=== PATIENT | male | born 1935 | race Caucasian/White ===

== ENCOUNTER 2016-11-14 13:00 | Inpatient (IN) | payer MEDICARE ==
[~2016-11-14] VITALS: Ht 172.7 cm; Wt 72.2 kg
--- NOTE | ~2016-11-14 | DS ---
PATIENT'S NAME: KAVITHA LEUNG [facility] AGE: 81 Y [address] ROOM: [place] [address] LOCATION: GPCU ADMIT DATE: 11/21/2016 Discharge Summary DISCHARGE DATE: 11/23/2016 FAMILY PHYSICIAN: Usha Villafana MD ATTENDING PHYSICIAN: Debora SCOTT FINAL DIAGNOSES: Peripheral vascular disease with right common femoral artery occlusion. SECONDARY DIAGNOSES: 1. Chronic obstructive pulmonary disease. 2. Hypertension, well controlled. 3. Chronic kidney disease stage 3. 4. Acute blood loss anemia postoperatively. PROCEDURES: Right common femoral artery endarterectomy with left lower extremity angiogram by Dr. Mohr on 11/21/2016. CONSULTATIONS: Hospitalist for medication management. HOSPITAL COURSE: This is an 81-year-old male, admitted to [facility] on 11/21/2016 after right common femoral artery endarterectomy and left lower extremity angiogram with Dr. Mohr. Operative findings, Recanalization of the right common femoral artery after patch angioplasty and left SFA total occlusion requiring bypass in the future with femoral below the knee pop. See history and physical for full patient details. The patient tolerated the procedure well and after recovery was admitted to the progressive care unit for monitoring of labs, vitals, surgical site, distal pulses, telemetry, pain management, medication administration, and nursing assistance. His IV Ancef was continued at every 8 hours postoperatively while inpatient. Hospitalists were consulted for medication management. Postop day 0, dopamine drip was initiated to keep MAP greater than 65. Dopamine was weaned off the patient by postop day 1. On postop day #1, the patient was found in stable condition with strong PT signals. His Kelly was removed. Saline fluids were removed and vein mapping of left leg completed for future bypass planning. The patient got up to the chair and bathroom without complications and his pain was well controlled. On postop day 2, the patient tolerated ambulating in the [place] with Physical Therapy and ambulated 200 feet without assistance. DP and PT Dopplered with good waveforms. His dressings removed, which revealed a clean, dry, intact incision to his right groin. The patient was found in stable condition from both a vascular standpoint and a hospitalist standpoint and was discharged home without complication. PATIENT'S NAME: XOCHITL KAVITHA [facility] AGE: 81 Y [address] ROOM: [address] [place], [place] [address] LOCATION: GPCU ADMIT DATE: 11/21/2016 Discharge Summary DISCHARGE DATE: 11/23/2016 FAMILY PHYSICIAN: Usha Villafana MD ATTENDING PHYSICIAN: Debora SCOTT DIAGNOSTICS AND LABORATORY DATA: White blood cell count trending 6.1, 5.1, 10.6, 9.8. Hemoglobin trending 13.2, 10.2, 8.8, 2.1. DISCHARGE ORDERS: The patient is to be discharged home on a regular diet. He is to avoid heavy lifting for 2 weeks. He is to apply daily dry gauze to his right groin. The patient is to follow up in 2 weeks at [facility] with Karen Storey APRN on 12/05/2016 for staple removal and incision evaluation. He is to follow up with Dr. Mejia regarding chronic kidney disease on 11/30/2016. The patient is to report any signs or symptoms of infection including redness, swelling, fevers, chills, or drainage. The patient is to report any acute onset of pain, numbness, or tingling to right lower extremity. MEDICATIONS: 1. Metoprolol, extended release 50 mg p.o. daily. 2. Simvastatin 20 mg p.o. at nighttime daily. 3. Niacin extended release 500 mg p.o. daily at bedtime. 4. Multivitamin 1 tablet p.o. daily. 5. Aspirin 81 mg p.o. daily. 6. Vitamin B12 2500 mcg p.o. daily. 7. Calcium carbonate 1 tablet p.o. every 4 hours as needed for heartburn. 8. [place] 5/325 one to two tablets p.o. every 4 hours as needed for pain. DISPOSITION: The patient is discharged home in stable condition. He is to follow discharge orders as prescribed. Education about surgical site care, medications, prescriptions, diet and activity, and followup appointment is given to the patient. The patient verbalized understanding of the plan and had no further questions or concerns. He is to follow discharge orders as prescribed. KAREN STOREY APRN FOR MD [employer]/neema /[id number] d: 11/25/16 0328 t: 11/29/16 1511, DISCHARGE SUMMARY
--- NOTE | ~2016-11-14 | ENPV ---
Vascular Lower Extremity Vein Mapping Procedure Demographics Patient Name KAVITHA LEUNG Date of Study 11/22/2016 Patient Number [id number] Gender Male Date of 1935 Age 81 Visit Number [id number] Height Accession Number [id number] Weight Room Number G6308 BSA BMI Referring Broderick Worthington MD Interpreting Onur Barry MD Physician Onur Barry MD Physician Jayleen Cazares Physician Ordering Physician Onur Barry MD Automatic Head Sawyer Biometry Teacher Fozia Haas, RT,RVT,RDCS Kit Younger Conclusions Summary The left greater saphenous vein was imaged for a pre-op CABG. No evidence of superficial thrombophlebitis in the left lower extremity . Procedure Type of Study: Veins:Lower Extremity Vein Mapping, Vein Mapping. Indications for Study:Pre-op CABG. Appropriate Use Criteria:8 Allergies - No known allergies. Patient Status:Routine. Study Location:Inpatient Portable. Technical Quality:Adequate visualization. Velocities are measured in cm/s ; Diameters are measured in cm + ++--------++--------+ !Superficial - Great Saphenous Vein !!Right !!Left ! + ++--------++--------+ !Location !!Diameter!!Diameter! + ++--------++--------+ !Sapheno Femoral Junction !! !!0.46 ! + ++--------++--------+ !GSV High Thigh !! !!0.31 ! + ++--------++--------+ !GSV Mid Thigh !! !!0.18 ! + ++--------++--------+ !GSV Low Thigh !! !!0.16 ! + ++--------++--------+ !GSV Knee !! !!0.17 ! + ++--------++--------+ !GSV High Calf !! !!0.18 ! + ++--------++--------+ !GSV Mid Calf !! !!0.16 ! + ++--------++--------+ !GSV Low Calf !! !!0.16 ! + ++--------++--------+ Signature dtt: SYED VELEZ dtwilliam: 11/22/16 0946 Physician Self Edit
--- NOTE | ~2016-11-14 | OR ---
PATIENT'S NAME: KAVITHA LEUNG [facility] AGE: 81 Y [address] ROOM: [address] [address] LOCATION: GPCU ADMIT DATE: 11/21/2016 OR/Procedure Report DISCHARGE DATE: FAMILY PHYSICIAN: Usha Villafana MD ATTENDING PHYSICIAN: Debora SCOTT SURGEON: Jhonny Mohr MD SCHOOL RESOURCE OFFICER: DATE OF PROCEDURE: 11/21/2016 PREOPERATIVE DIAGNOSIS: Right common femoral artery occlusion. POSTOPERATIVE DIAGNOSIS: Right common femoral artery occlusion. PROCEDURE: Right common femoral endarterectomy with left lower extremity diagnostic angiogram. FACILITIES FLIGHT CHECK PILOT: TATI [place]. ANESTHESIA: General. ESTIMATED BLOOD LOSS: 350 mL. OPERATIVE FINDINGS: Recanalization of the right common femoral after patch angioplasty and left SFA total occlusion requiring bypass in the future without fem below-knee pop. DESCRIPTION OF PROCEDURE: The patient was brought to operating room, placed supine on operating table, placed under general anesthesia, prepped and draped in a sterile manner, had placement of arterial line as well as a Kelly catheter. Preoperative time-out was performed. The patient received 2 g of Ancef. We made a standard incision in a vertical manner in the right groin, dissected down the fascia, incised the fascia in a longitudinal manner, dissected out the superficial femoral, the common femoral, and the profunda artery. We gave 5000 units of heparin [place] [id number] for [place] case, which was reversed with protamine. We then clamped on all 3 of the major vessels. Made arteriotomy on the SFA extending onto the common femoral. There was dense, soft, noncalcified plaque with extremely limited flow lumen. I would estimate the percentage was actually about 90% to 99% in- stenosis. We then removed the plaque in its entirety completing the end and orifice of the profunda, removed the plaque in its entirety. The artery was extremely thin-walled and we did not want to take anymore layers and so we tacked down any remaining soft tissue plaque to the surface of the artery. We made a standard 6-0 bovine pericardial patch using two running 6-0 [place] sutures. We removed the clamps. There was flow into the SFA as well as profunda. We repaired any bleeding sites with interrupted Prolene. We then PATIENT'S NAME: KAVITHA LEUNG [facility] AGE: 81 Y [address] ROOM: [place] [address] [facility] ADMIT DATE: 11/21/2016 OR/Procedure Report DISCHARGE DATE: FAMILY PHYSICIAN: Usha Villafana MD ATTENDING PHYSICIAN: Debora SCOTT gained access to the common femoral to the patch using a micropuncture needle, followed by micropuncture wire, followed by micropuncture sheath. We exchanged for a 5-Kyrgyz sheath, went up in the aorta using 0.035 Glidewire, went up and over the aortic bifurcation with Omni Flush and the wire, and then performed a series of angiograms of the left lower extremity. The SFA was completely out at the origin. There was a patent profunda and there was a patent below-knee popliteal, which was filled via collaterals through the profunda. The patient went to bypass of this leg. Deep layers were closed with 2-0 and 3-0 Vicryl. Skin was closed with tone. The patient tolerated the procedure well and transferred to recovery room and then up to the floor. MD PETER [employer]EL/neema /[id number] d: 11/21/16 1825 t: 11/25/16 0927, OPERATIVE SUMMARY
[~2016-11-14 13:00] MED LIST: ASPIRIN (CHILDR81 MG PO; CENTRUM SILVER1 EAC2 PO; COMBIVENT RESPIM4 GM INH; DELTASONE20 MG PO; LOTREL 5-20 MG1 EACH PO; METOPROLOL SUCC50 MG PO; NIASPAN1000 MG PO; TUMS REGULAR ST1 TAB PO; VITAMIN B122500 MCG PO; ZOCOR20 MG PO
[2016-11-21 06:43] LABS: HEMOGLOBIN 13.2 g/dL (11.0-16.0); MCH 35.6 pg (27.0-34.0); MCV 106.2 fl (83.0-98.0); MPV 9.7 fl (9.4-12.4); RBC 3.71 M/uL (3.50-5.50); RDW-CV 14.4 % (11.9-14.6); WBC 6.1 K/uL (4.0-11.0)
[2016-11-21 06:47] LABS: HEMATOCRIT 39.4 % (33.0-50.0); MCHC 33.5 gm/dL (32.0-36.5); PLATELET COUNT 125 K/uL (150-450)
[2016-11-21 06:49] LABS: INR - (THERAPEUTIC) 0.98 (0.92-1.07); PROTIME 10.3 SECONDS (9.8-11.4)
[2016-11-21 07:04] LABS: ALBUMIN 3.6 gm/dL (3.5-5.0); ANION GAP 10.7 (10.0-19.0); CALCIUM 8.2 mg/dL (8.5-10.5); CREATININE 1.5 mg/dL (0.6-1.3); POTASSIUM 3.7 mMol/L (3.7-5.1); TOTAL BILIRUBIN 0.3 mg/dL (0.0-1.5); TOTAL PROTEIN 7.7 g/dL (6.0-8.4)
[2016-11-21 07:23] LABS: ABSOLUTE NEUTROPHIL CT (ANC) 3.4 K/uL (1.4-9.0); BANDED NEUTROPHIL # 0.3 K/uL (0.0-0.1); BANDED NEUTROPHILS % 5 %; LYMPHOCYTE # 1.6 K/uL (0.8-4.0); LYMPHOCYTE % 26 %; MONOCYTE # 0.6 K/uL (0.0-1.0); SEGMENTED NEUTROPHIL # 3.1 K/uL (1.4-9.0); SEGMENTED NEUTROPHIL % 51 %
[2016-11-21 15:04] LABS: HEMOGLOBIN 10.2 g/dL (11.0-16.0); MCH 36.4 pg (27.0-34.0); MCV 106.8 fl (83.0-98.0); MPV 9.6 fl (9.4-12.4); RDW-CV 14.3 % (11.9-14.6); WBC 5.1 K/uL (4.0-11.0)
[2016-11-21 15:05] LABS: HEMATOCRIT 29.9 % (33.0-50.0); MCHC 34.1 gm/dL (32.0-36.5); PLATELET COUNT 79 K/uL (150-450)
[2016-11-21 15:17] LABS: ANION GAP 10.4 (10.0-19.0); CREATININE 1.6 mg/dL (0.6-1.3); POTASSIUM 4.4 mMol/L (3.7-5.1)
[2016-11-21 15:18] LABS: CALCIUM 7.3 mg/dL (8.5-10.5)
[2016-11-21 15:34] LABS: ABSOLUTE NEUTROPHIL CT (ANC) 4.3 K/uL (1.4-9.0); LYMPHOCYTE # 0.4 K/uL (0.8-4.0); LYMPHOCYTE % 8 %; MONOCYTE # 0.4 K/uL (0.0-1.0); SEGMENTED NEUTROPHIL # 4.3 K/uL (1.4-9.0); SEGMENTED NEUTROPHIL % 84 %
--- NOTE | 2016-11-21 15:39 | NUR ---
SEE VITAL SIGNS SCREEN FOR PACU VITALS.
--- NOTE | 2016-11-21 17:08 | NUR ---
Significant Event: A/O X 3, cooperative with cares. VSS. Art line to L) arm. PIV to R) hand, and L) wrist. Dopamine infusing to keep MAP >= 65. No c/o pain. Incision to R) leelee, stapled and dressed. Marked drainage through dressing. Bedrest for 24 hours. Advance diet as tolerated. Has sips and broth and did well. Bilateral pneumatics on. Has history of AAA stent through R) groin, renal insufficiency, htn and PVD. Family at bedside. On 3 liters O2 per NC, to keep satx >92%. Follow up: November dc Kelly and Art line in AM.
--- NOTE | 2016-11-22 04:45 | NUR ---
A/O. VSS. ART LINE AND YOON TO BE PULLED THIS AM. GROIN SITE C/D/I, MARKED DRAINAGE. BEDREST 24 HRS. NS AT 100.
[2016-11-22 05:47] LABS: BASOPHIL % 0.1 %; HEMATOCRIT 26.1 % (33.0-50.0); HEMOGLOBIN 8.8 g/dL (11.0-16.0); IMMATURE GRANULOCYTE # 0.1 K/uL (0.0-0.3); IMMATURE GRANULOCYTE % 1.1 %; LYMPHOCYTE # 0.8 K/uL (0.8-4.0); LYMPHOCYTE % 7.1 %; MCH 35.8 pg (27.0-34.0); MCHC 33.7 gm/dL (32.0-36.5); MCV 106.1 fl (83.0-98.0); MONOCYTE # 0.7 K/uL (0.0-1.0); MONOCYTE % 6.8 %; MPV 9.8 fl (9.4-12.4); NEUTROPHIL % 84.9 %; NRBC % 0 /100WBC (0-0.00); PLATELET COUNT 76 K/uL (150-450); RBC 2.46 M/uL (3.50-5.50); RDW-CV 14.6 % (11.9-14.6); WBC 10.6 K/uL (4.0-11.0)
--- NOTE | 2016-11-22 13:18 | NUR ---
Introduced self and role of care management to patient and his . They live in [place]. He states that he is able to do all his ADL's independently. His is available to assist as needed. They plan on returning home on discharge. They deny any needs at this time. Will continue to follow.
--- NOTE | 2016-11-22 17:51 | NUR ---
SIGNIFICANT EVENT: Pt A&Ox3-pleasant and cooperative with cares. VSS. SBP 130's, HR 70's. Afebrile. Doppler pulses to lower extremities. Rt groin dressing has marked old drainage. Pt had c/o of tenderness to right lower extremitiy at 1653-refused any ice or medication. Vein mapping of left leg done today. Kelly D/C this afternoon-up to bathroom. Bowels active-no BM today. Regular diet. IV to right hand saline locked. Left posterior forearm/wrist saline locked. 1A-SBA, up with family in room. Activity as tolerated. FOLLOW UP: PT/OT consult tomorrow. Possible D/C home tomorrow.
[2016-11-23 02:32] LABS: HEMATOCRIT 30.2 % (33.0-50.0); HEMOGLOBIN 10.1 g/dL (11.0-16.0); MCH 35.7 pg (27.0-34.0); MCHC 33.4 gm/dL (32.0-36.5); MCV 106.7 fl (83.0-98.0); MPV 9.8 fl (9.4-12.4); RBC 2.83 M/uL (3.50-5.50); RDW-CV 14.8 % (11.9-14.6); WBC 9.8 K/uL (4.0-11.0)
[2016-11-23 02:39] LABS: PLATELET COUNT 96 K/uL (150-450)
[2016-11-23 02:51] LABS: ANION GAP 9.9 (10.0-19.0); CALCIUM 8.1 mg/dL (8.5-10.5); CREATININE 1.4 mg/dL (0.6-1.3); POTASSIUM 3.9 mMol/L (3.7-5.1)
--- NOTE | 2016-11-23 04:14 | NUR ---
PATIENT CALM AND COOPERATIVE THROUGHOUT SHIFT. UP AMBULATING AD VIOLA, STEADY ON FEET. DOPPLER PULSES PRESENT IN BILATERAL PEDAL/POST TIB. REMAINS ON R/A. VSS. IV CEFAZOLIN GIVEN X2. IV TO R) HAND AND R) UPPER ARM BOTH SL. GROIN SITE MARKED FOR DRAINAGE, NO ADDITIONAL DRAINAGE. SLIGHT PAIN IN R) INNER THIGH AND LOWER R) LEG R/T PROCEDURE. NO REQUEST FOR PAIN MEDICATION. POSSIBLE D/C TODAY DEPENDING ON TRENDING H/H LAB RESULTS.
[2016-11-23 05:02] LABS: ABSOLUTE NEUTROPHIL CT (ANC) 7.6 K/uL (1.4-9.0); BANDED NEUTROPHIL # 0.3 K/uL (0.0-0.1); BANDED NEUTROPHILS % 3 %; LYMPHOCYTE # 1.6 K/uL (0.8-4.0); LYMPHOCYTE % 16 %; MONOCYTE # 0.6 K/uL (0.0-1.0); SEGMENTED NEUTROPHIL # 7.3 K/uL (1.4-9.0); SEGMENTED NEUTROPHIL % 74 %
[2016-11-23] MEDS ORDERED: NORCO 5-325 TA1 EACH PO (12:55)
--- NOTE | 2016-11-23 13:59 | NUR ---
Dismissal Summary: Patient A/O x 3. Vital signs stable: HR 74, RR 18, BP 132/60, O2 saturation 91% on room air, temperature 98.5F, and denies pain. Given Tylenol prior to discharge for a headache, but patient states headache is gone at time of discharge. Right groin site with tone intact, incision approximated, and no signs/symptoms of infection. Discharge instructions included: new medications/medication changes, sign/symptoms to be alert for, care of Right groin site, and follow-up apointments with Karen Aponte APRN on 12/05/[address] Mejia on 11/30/16. Patient and verbalize understanding of all teaching. Patient left PCU at 1355 and dismissed from [facility] entrance at 1355 to home to self care with . No other needs at time of discharge. Gissel GARCIA 11/23/16
== END 2016-11-23 13:50 | disposition disaster alternative care site (69) | DRG 253 ==
LOC: GPCU 11-21 06:02
PROVIDERS: Internal Medicine; ADMIT Surgery Vascular Surgery
PROC: 047K0ZZ Dilation of Right Femoral Artery, Open Approach (ICD-10-PCS; principal; 2016-11-21)
PROC: 04CK0ZZ Extirpation of Matter from Right Femoral Artery, Open Approach (ICD-10-PCS; 2016-11-21)
PROC: 04UK0JZ Supplement Right Femoral Artery with Synthetic Substitute, Open Approach (ICD-10-PCS; 2016-11-21)
DX: I74.3 Embolism and thrombosis of arteries of the lower extremities (principal); D62 Acute posthemorrhagic anemia; J44.9 Chronic obstructive pulmonary disease, unspecified; N18.3 Chronic kidney disease, stage 3 (moderate); I73.9 Peripheral vascular disease, unspecified; I12.9 Hypertensive chronic kidney disease with stage 1 through stage 4 chronic kidney disease, or unspecified chronic kidney disease; Z87.891 Personal history of nicotine dependence; E78.5 Hyperlipidemia, unspecified
CPT/HCPCS: C1769; C1887; J0690; J1100; J1265; J1644; J1650; J2405; J2720; J3480; J7030; J7050; P9045

== ENCOUNTER 2016-11-25 19:22 | Emergency (ER) | payer MEDICARE ==
--- NOTE | ~2016-11-25 | ER ---
PATIENT'S NAME: KAVITHA LEUNG [facility] AGE: 81 Y [address] ROOM: [place] [address] LOCATION: ED ADMIT DATE: 11/25/2016 ER/Outpatient Report DISCHARGE DATE: 11/25/2016 FAMILY PHYSICIAN: Physician, Unknown ATTENDING PHYSICIAN: Shira Carballo HISTORY OF PRESENT ILLNESS: This is an 81-year-old male, who presents with some postoperative bleeding status post right common femoral artery endarterectomy done on 11/21/2016. This was done by Dr. Mohr. The patient states that he has been doing well since that. He had some mild swelling and then today he noticed some fluid running down his leg. The fluid is clearish with some like maroon blood, mostly dried blood. There is no bright red blood. It was not gushing. It just resolved with direct pressure. The patient put a maxi pad and taped it in place and came in. He had called Dr. Villafana, who is his primary care doctor, who told him to get evaluated in the ER. The patient denies any weakness tonight. He says he feels fine especially since the bleeding has stopped now. No other complaints at this time. PAST MEDICAL HISTORY: Includes COPD, hypertension, hypercholesterolemia, chronic kidney disease stage 3, peripheral vascular disease, history of abdominal aortic aneurysm and anemia. PAST SURGICAL HISTORY: He had an appendectomy in 1950 and history of ex lap for small bowel obstruction and adhesions from that appendectomy in 1958. He had a hernia repair on the left side in 2004, hernia repair on the right side in 2005, carotid artery endarterectomy on the left side after TIA in 2005, cataracts surgery in 2007, tonsillectomy 1947 and femoral endarterectomy and patch angioplasty in the right leg in 11/21/2016. SOCIAL HISTORY: He was a previous heavy smoker, but he quit 10 years ago. Denies any drugs or alcohol use. MEDICATIONS: Include: 1. Metoprolol extended release 50 mg once a day for hypertension. 2. Simvastatin 20 mg once a day for high cholesterol. 3. Niacin 500 mg once a day for high cholesterol. 4. He also takes aspirin 325 daily. 5. Vitamin B12. 6. Centrum Silver for Men. PATIENT'S NAME: KAVITHA LEUNG [facility] AGE: 81 Y [address] ROOM: [place], [place] [address] LOCATION: [facility] ADMIT DATE: 11/25/2016 ER/Outpatient Report DISCHARGE DATE: 11/25/2016 FAMILY PHYSICIAN: Physician, Unknown ATTENDING PHYSICIAN: Shira Carballo ALLERGIES: NONE. REVIEW OF SYSTEMS: Reviewed by me and negative with the exception of those discussed in the HPI. PHYSICAL EXAMINATION: GENERAL: The patient is very pleasant and delightful speaking in full sentences, in no acute distress at this time. He was able to walk on his own. VITAL SIGNS: He is 71.4 kilos, blood pressure is 164/74, heart rate 83, respiratory rate 16, temperature is 98.7, saturating 95% on room air. NEUROLOGIC: The patient is alert and oriented x4. Speaking to me in full sentences. GCS is 15. HEART: Regular rate and rhythm. LUNGS: His lungs sounds slightly diminished, but he does not have any increased work of breathing. ABDOMEN: Soft, nontender, nondistended. EXTREMITIES: The right femoral incision is stapled with some mild swelling and small amount of like serous fluid that is a little bit brownish tinged. No active bleeding. There is no bright red blood. He has good pulses at the pedal area that I can palpate them. SKIN: Warm, dry, and intact. No evidence of cellulitis around the area. It is healing well. Looks clean, dry and intact. EMERGENCY ROOM COURSE: I discussed this with the patient and I think this is just serous fluid. There is no active bleeding from it. The patient was reassured. We put an ABD pad on it and taped in place and he is to call Dr. Mohr in the morning. IMPRESSION: Postoperative bleeding. MD TERI BUTCHER/neema /[id number] d: 11/26/16 0533 t: 11/27/16 0028, OUTPATIENT REPORT
[~2016-11-25 19:22] MED LIST changes: +NORCO 5-325 TA1 EACH PO
== END 2016-11-25 19:48 | disposition disaster alternative care site (69) ==
LOC: GMED 19:22
DX: I97.618 Postprocedural hemorrhage of a circulatory system organ or structure following other circulatory system procedure (principal); J44.9 Chronic obstructive pulmonary disease, unspecified; I12.9 Hypertensive chronic kidney disease with stage 1 through stage 4 chronic kidney disease, or unspecified chronic kidney disease; I73.9 Peripheral vascular disease, unspecified; N18.3 Chronic kidney disease, stage 3 (moderate); E78.00 Pure hypercholesterolemia, unspecified; Z87.891 Personal history of nicotine dependence; Z79.82 Long term (current) use of aspirin; Z79.899 Other long term (current) drug therapy; Z90.49 Acquired absence of other specified parts of digestive tract; Z90.89 Acquired absence of other organs

== ENCOUNTER → 2016-12-06 | Outpatient (CLI) | payer MEDICARE ==
[~2016-12-06] MED LIST changes: +FLAGYL500 MG PO; +FLORASTOR250 MG PO
== END | disposition disaster alternative care site (69) ==
LOC: GRAD 10:00
DX: N28.9 Disorder of kidney and ureter, unspecified (principal); N28.1 Cyst of kidney, acquired

== ENCOUNTER 2016-12-28 19:22 | Inpatient (IN) | payer MEDICARE ==
[~2016-12-28] VITALS: Ht 175.3 cm; Wt 96.1 kg
--- NOTE | ~2016-12-28 | HP ---
PATIENT'S NAME: KAVITHA LEUNG [facility] AGE: 81 Y [address] ROOM: [address] [address] LOCATION: [facility] ADMIT DATE: 12/28/2016 History & Physical DISCHARGE DATE: FAMILY PHYSICIAN: Usha Villafana MD ATTENDING PHYSICIAN: Usha Villafana DATE OF SERVICE: CHIEF COMPLAINT: Severe diarrhea and weakness and thinking he is getting dehydrated. HISTORY OF PRESENT ILLNESS: The patient is an elderly 81-year-old male with a known history of peripheral vascular disease. The patient had a right common femoral artery occlusion on 11/21/2016 and had a right common femoral endarterectomy with left lower extremity diagnostic angiogram. All went well with that, unfortunately he developed a wound infection. He was placed on clindamycin for that. He has been battling the diarrhea since being placed on the clindamycin, which has been going on for about 2 weeks now. He was seen by Dr. Villafana yesterday and had a positive C. diff. His white count was 12.5 and hemoglobin was 12.5. His platelet count was 200. Sodium 139, potassium 3.9, BUN 13, creatinine 1.51. He was a little orthostatic with his lying blood pressure being 138/64 and standing he was down to 106/58, with his pulse being in the 90s throughout. Dr. Villafana started him on metronidazole 500 mg 3 times daily for 10 days. She recommended that he take a probiotic and pushed the fluids and advanced to a BRAT diet. Unfortunately, the patient has been unable to keep the antibiotic down. He has vomited up at least twice, he states. He continues to have profuse diarrhea, and he just started to get increasingly more weak. He was seen in the emergency room, and I was in agreement that it was thought best to go ahead and admit him. PAST MEDICAL HISTORY: ALLERGIES: NONE KNOWN. CURRENT MEDICATIONS: 1. Aspirin 81 mg daily. 2. Centrum Silver daily. 3. Metoprolol succinate 50 mg daily. 4. Niacin 1000 mg extended release tablet, half tablet at bedtime. 5. Simvastatin 20 mg daily. 6. Vitamin B12 2000 mcg daily. IMMUNIZATIONS: PATIENT'S NAME: XOCHITL [facility] AGE: 81 Y [address] ROOM: [id number] [place], [place] [address] LOCATION: [facility] ADMIT DATE: 12/28/2016 History & Physical DISCHARGE DATE: FAMILY PHYSICIAN: Usha Villafana MD ATTENDING PHYSICIAN: Usha Villafana He had his flu shot in the fall of 2015. He has had his Pneumovax 23 on 05/20/2007, and he had a PCV on 07/27/2014. He has had a shingles shot and had a tetanus shot in 2007. PREVIOUS SURGERIES: Include abdominal aortic aneurysm endovascular repair by Dr. Mohr in 2015; appendectomy in 1949; and exploratory surgery in the abdominal-colon area in 195, gangrene tissue wrapped around bowel, possibly adhesions from appendectomy. He had a carotid artery endarterectomy on the left side due to a TIA by Dr. Carbajal in 2005. He has had cataract extraction done by Dr. Odom in 2007, colonoscopy by Dr. Borges in [address] Galvin in 2014. In 2014, they did remove a polyp and recommended a repeat in 5 years. Prior to that, he had had a villous adenoma removed in 2009. He had a right femoral endarterectomy and patch angioplasty of his right leg along with left leg angiogram in 2017 in October. He has had a hernia repair on the right side in 2005 and left side in 2004. He had a stent in his leg in [facility] around 2005 and a tonsillectomy in 1947. SOCIAL HISTORY: Alcohol: He does not drink. Caffeine: He does drink coffee on a daily basis. The patient is . 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 He did serve in the . He is a former smoker. He quit in approximately 2000. He does have a long-term history of smoking. CHRONIC HEALTH PROBLEMS: Include his peripheral vascular disease, hyperlipidemia, hypertension, history of abdominal aortic aneurysm, actinic keratosis, history of carotid artery disease and the peripheral vascular disease as mentioned above. REVIEW OF SYSTEMS: HEENT: He does get a little lightheaded standing up. LUNGS: Denies shortness of breath. CHEST: No pains, pressure, or tightness. GI: The profuse diarrhea as mentioned and the nauseousness and he has vomited the metronidazole a couple of times. : He states his urine output is probably down a little bit. MUSCULOSKELETAL: Negative. PHYSICAL EXAMINATION: GENERAL: Elderly male, in no acute distress. He is actually resting comfortably in bed at this time. HEENT: His head is normocephalic, atraumatic. His ears, eyes, and nose are clear. Oropharynx, definitely along the dry side. NECK: Supple. No adenopathy. LUNGS: Show diminished breath sounds throughout. PATIENT'S NAME: KAVITHA LEUNG [facility] AGE: 81 Y [address] ROOM: [address] [address] LOCATION: [facility] ADMIT DATE: 12/28/2016 History & Physical DISCHARGE DATE: FAMILY PHYSICIAN: Usha Villafana MD ATTENDING PHYSICIAN: Usha Villafana HEART: Slightly tachycardic, but regular. ABDOMEN: Diffuse mild tenderness. No guarding or rebound. EXTREMITIES: No edema. LABORATORY DATA: The patient's pH is 7.53, pCO2 of 22, pO2 of 111, bicarb 18.4 with a CO2 of 19 and percent saturation of 99%. CPK is 63 with a troponin I of less than 0.040[place] [address] with a hemoglobin of 11.7, hematocrit 34.5, and platelet count 242. His chemistry panel showed glucose 119, BUN 16, creatinine 1.8, sodium 138, potassium slightly low at 3.5, chloride 106, CO2 of 21, calcium 8.4, total protein 7, albumin 2.9, AST 18, ALT 25, alkaline phosphatase 60, total bilirubin 0.6, and eGFR is 36. His amylase is 39, lipase 62, CK-MB less than 0.5. CRP elevated at 16.3. His differential showed 79% segs, 10% bands, and 5% lymphs. As mentioned, he had a positive C. diff yesterday. His chest x-ray showed signs of COPD, but no acute process. ASSESSMENT: 1. Clostridium difficile colitis. 2. Elevated white blood cell count secondary to Clostridium difficile colitis. 3. Mild hypokalemia. 4. Dehydration. 5. History of peripheral vascular disease. 6. History of aortic aneurysm, status post stent graft repair. 7. Hypertension. 8. Hyperlipidemia. PLAN: We will go ahead and admit the patient to the hospital and place him on the C. diff pathway. I am going to go with vancomycin orally as he is having a tough time holding down the Flagyl. We will go ahead and hydrate and replace his potassium. We will continue probiotics. We will plan on having the patient followed by Dr. Villafana. We will recheck labs in the morning. Did discuss the natural course with the patient. MD CONRAD HU/neema /[id number] D: [id number] T: [id number] HISTORY & PHYSICAL
--- NOTE | ~2016-12-28 | ER ---
PATIENT'S NAME: [facility] AGE: 81 Y [address] ROOM: [place] [address] LOCATION: [facility] [place] AD[place] DATE: 12/28/2016 ER/Outpatient Report DISCHARGE DATE: FAMILY PHYSICIAN: Usha Villafana MD ATTENDING PHYSICIAN: Usha Villafana Admission date and time documented in medical record. I saw the patient at 1945 hours. CHIEF COMPLAINT: Multiple diarrheal stools over the past 2 weeks. Extreme weakness. Unable to stand by himself and transfer. HISTORY OF PRESENT ILLNESS: The patient is an 81-year-old male who by history was placed on clindamycin about 2 weeks ago for a wound infection. Subsequently, developed diarrhea from the clindamycin. Did have multiple explosive diarrheal stools. No blood in his stool. He had nausea and a couple of episodes of vomiting. He was diagnosed with C. difficile a couple of days ago and started on Flagyl. He came in to the emergency department because of his severe fatigue and weakness. The patient's unable to handle the patient at home. Increased diarrheal stools today. No abdominal pain. No chest pain. Feels a little bit short of breath. He is hyperventilating. No headache, eyes, ears, nose, throat, neck, or spine pain. No fall or trauma. No lightheadedness, dizziness, syncope, or near syncope. No urinary symptoms. No joint or muscle swelling, redness, or pain. No skin eruptions or rash. No history of neuro changes, psych issues, or endocrine problems. HOME MEDICATIONS: See attached medication list. ALLERGIES: NONE. SOCIAL HISTORY: Nonsmoker, nondrinker. SIGNIFICANT PAST MEDICAL HISTORY: Hypertension, COPD, chronic kidney disease, carotid occlusive disease, anemia, peripheral vascular disease, dyslipidemia, abdominal aortic aneurysm, remote tobacco abuse. OPERATIONS: Abdominal aortic aneurysm repair, right common femoral artery endarterectomy. PATIENT'S NAME: [facility] AGE: 81 Y [address] ROOM: [place] [address] LOCATION: [facility] [place] ADMIT DATE: 12/28/2016 ER/Outpatient Report DISCHARGE DATE: FAMILY PHYSICIAN: Usha Villafana MD ATTENDING PHYSICIAN: Usha Villafana REVIEW OF SYSTEMS: All systems reviewed by me are negative with the exception of those discussed in history of the present illness. PHYSICAL EXAMINATION: VITAL SIGNS: Temperature 99.7 tympanic, pulse 96, respiratory rate 16, blood pressure 120/60, O2 saturation on room air is 95%. HEAD: Normocephalic. EYES, EARS, NOSE, AND THROAT: Clear. Mucous membranes little dry. NECK: Negative. SPINE: Negative. LUNGS: Clear. Good air flow. The patient is mildly hyperventilating, feels short of wind. Oximetry is reading 95% on room air. HEART: Regular. Pulses palpable. No chest wall or rib cage pain to palpation. ABDOMEN: Soft, nondistended, nontender. Good bowel tones. No organomegaly or abnormal mass palpable. EXTREMITIES: Intact. NEUROVASCULAR: Intact. SKIN: Clear. No skin eruptions or rash. LABORATORY DATA AND X-RAYS: EKG shows some ST depression in V3 through V6. No acute ST elevation or arrhythmia. White count was 17,000, 79 segs, 10 bands, 5 lymphs, 6 monos, hemoglobin is 11.7, hematocrit 34.5, platelet count is 242,000. CPK was 63. CK-MB was less than 0.5, troponin less than 0.04. CRP was 16.3. CMS showed a slightly low potassium of 3.5, low CO2 content of 21, elevated glucose of 119, low calcium of 8.4, normal BUN of 16, elevated creatinine of 1.8, low GFR of 36. Amylase and lipase were normal. Arterial blood gases on room air showed a pH of 7.53, pCO2 of 22, pO2 of 111 with an O2 saturation of 99%. Chest x- ray: Chest x-ray showed no acute infiltrate. 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 We will review x-ray with the radiologist. We will start the patient on IV normal saline and fluids. IMPRESSION: 1. Clostridium difficile colitis with severe explosive diarrhea. 2. Extreme weakness secondary to Clostridium difficile colitis with severe explosive diarrhea. 3. Hyperventilation. He was feeling the shortness of breath. 4. History of chronic obstructive pulmonary disease, emphysematous type with remote tobacco use history. 5. Hypertension. 6. Peripheral vascular disease. 7. Carotid occlusive disease. PATIENT'S NAME: [facility] AGE: 81 Y [address] ROOM: [address] [address] LOCATION: [facility] [place] ADMIT DATE: 12/28/2016 ER/Outpatient Report DISCHARGE DATE: FAMILY PHYSICIAN: Usha Villafana MD ATTENDING PHYSICIAN: Usha Villafana 8. Dyslipidemia. PLAN: Discussed the patient with Dr. Johnson. Dr. Villafana will admit the patient to the hospital. Discussion ensued with the patient concerning my findings and recommendations, he understands. MD BAILEY QUINONES/neema /[id number] d: 12/29/16 0151 t: 12/29/16 1809, OUTPATIENT REPORT
--- NOTE | ~2016-12-28 | DS ---
PATIENT'S NAME: CARLITOS [facility] AGE: 81 Y [address] ROOM: [address] [address] LOCATION: [facility] [place] ADMIT DATE: 12/29/2016 Discharge Summary DISCHARGE DATE: 01/02/2017 FAMILY PHYSICIAN: Usha Villafana MD ATTENDING PHYSICIAN: Usha Villafana PRINCIPAL/DISCHARGE DIAGNOSES: 1. Severe Clostridium difficile colitis. 2. Dehydration. 3. Hypokalemia. 4. Acute on chronic renal failure. 5. Vascular disease. 6. Hypotension. 7. Hyperlipidemia. 8. Peripheral vascular disease. 9. History of aortic aneurysm. SUMMARY: Carlitos is an 81-year-old gentleman who was diagnosed with C. difficile earlier in the day on 12/28/2016. He was not able to keep the antibiotics down, weak, and vomiting. He then went to the emergency room to be admitted (see Dr. Johnson's extensive H and P). He was admitted, treated with IV fluids for hydration, antiemetics, and started on oral vancomycin due to the severity. He was unable to keep that down and was then switched to IV Flagyl. He then had considerable improvement over the next 48 hours or so. He is able to tolerate some clear liquids. His IV fluids were adjusted and then he was switched to oral antibiotics and tolerated that well. He continues to have several loose stools a day, but it is not explosive or severe as it was before. At this time, he has significantly improved and will be dismissed on oral antibiotics. DISPOSITION: Carlitos was dismissed on 01/02/2017 in improved condition. He will be on bland diet. Activity will be as tolerated. He is strongly encouraged to drink enough fluids so that he does not get dehydrated again. DISCHARGE MEDICATIONS: His dismissal medications include: 1. Aspirin 81 mg daily. 2. Metoprolol succinate 50 mg daily. 3. Flagyl 500 mg q.i.d. for 5 more days, for a total of 10 days. 4. Florastor 250 mg b.i.d. 5. Simvastatin 20 mg daily. 6. Tums 1 tablet every 2 hours as needed for heartburn. 7. Niacin 500 mg at bedtime. 8. Multivitamin daily. 9. B12 daily. 10. [place] 5/325, 1 tablet q.4 hours p.r.n. pain. PATIENT'S NAME: CARLITOS LEUNG [facility] AGE: 81 Y [address] ROOM: [address] [place] [id number] LOCATION: [facility] [place] ADMIT DATE: 12/29/2016 Discharge Summary DISCHARGE DATE: 01/02/2017 FAMILY PHYSICIAN: Usha Villafana MD ATTENDING PHYSICIAN: Usha Villafana FOLLOW-UP: Follow up with me in 8 days, sooner if problems. Follow the sepsis protocol Flagyl. We will repeat the Flagyl and then go ahead with oral vanco and possibly transplant if these all failed. He understands he is not to proceed with any kind of surgical procedure until he is 100%. Prognosis is fair to good. MD GLORIA VILLALPANDO/neema /[id number] d: 01/02/17 1532 t: 01/05/17 0743, DISCHARGE SUMMARY
[~2016-12-28 19:22] MED LIST changes: -FLAGYL500 MG PO; -FLORASTOR250 MG PO
[2016-12-28 20:15] LABS: HEMATOCRIT 34.5 % (33.0-50.0); HEMOGLOBIN 11.7 g/dL (11.0-16.0); MCH 35.3 pg (27.0-34.0); MCHC 33.9 gm/dL (32.0-36.5); MCV 104.2 fl (83.0-98.0); MPV 9.4 fl (9.4-12.4); RBC 3.31 M/uL (3.50-5.50); RDW-CV 14.6 % (11.9-14.6)
[2016-12-28 20:19] LABS: PLATELET COUNT 242 K/uL (150-450)
[2016-12-28 20:33] LABS: ALBUMIN 2.9 gm/dL (3.5-5.0); ALK PHOS 60 IU/L (33-138); ALT 25 IU/L (12-78); ANION GAP 14.5 (10.0-19.0); AST 18 IU/L (10-40); BLOOD UREA NITROGEN 16 mg/dL (6-24); CALCIUM 8.4 mg/dL (8.5-10.5); CHLORIDE 106 mMol/L (96-110); CO2 21 mMol/L (22-32); CPK 63 IU/L (35-332); CREATININE 1.8 mg/dL (0.6-1.3); POTASSIUM 3.5 mMol/L (3.7-5.1); SODIUM 138 mMol/L (135-145)
[2016-12-28 20:35] LABS: BICARBONATE 18.4 mmol/L (18.0-23.0); PCO2 22 mmHg (35-45); PO2 111 mmHg (80-90)
[2016-12-28 20:36] LABS: TOTAL BILIRUBIN 0.6 mg/dL (0.0-1.5)
[2016-12-28 20:37] LABS: ESTIMATED GFR (MDRD EQUATION) 36
[2016-12-28 20:51] LABS: ABSOLUTE NEUTROPHIL CT (ANC) 15.1 K/uL (1.4-9.0); BANDED NEUTROPHIL # 1.7 K/uL (0.0-0.1); BANDED NEUTROPHILS % 10 %; LYMPHOCYTE # 0.9 K/uL (0.8-4.0); LYMPHOCYTE % 5 %; SEGMENTED NEUTROPHIL # 13.4 K/uL (1.4-9.0); SEGMENTED NEUTROPHIL % 79 %
--- NOTE | 2016-12-29 01:33 | NUR ---
THIS IS A 81 YEAR OLD MALE WHO HAD SURGERY 3 WEEKS AGO FOR A RIGHT FEMORAL EDARTECTOMY, INCISION TO RIGHT GROIN IS HEALING WELL. PT DIAGNOSED W/ C-DIFF AT [facility] SENT HOME ON ORAL FLAGYL, PT STARTED GETTING NAUSEOUS AND EATING POORLY FOR THE LAST TWO WEEKS. PT ADMITTED FOR WEAKNESS R/T C-DIFF/ DEHYDRATION. PT LIVES AT [facility] WITH HIS . 1- SBA. DENIES ANY FALLS. PT HAS HT OF HTN, HYPERLIPIDEMIA, TIA, CORNEAL TRANSPLANTS, APPENDECTOMY.
--- NOTE | 2016-12-29 04:14 | NUR ---
Significant Event:pt is a/0 x3. pt is a sba-1 assist. pt having frequent diarrhea. commode at bedside as pt worried about having time to get to bathroom, pt is wearing briefs but does not normally use them. iv to l ac has d5ns w/ 40meq of kcl@ 125. pt on oral vanco q 6hrs. iso for c-diff. daily weight and strict i&o. pt has had n/v with 2 episodes of vomiting. pt has incision to r groin that is open to air and healing well from surgery 3 weeks ago. Follow up:
[2016-12-29 06:06] LABS: HEMATOCRIT 31.6 % (33.0-50.0); HEMOGLOBIN 10.8 g/dL (11.0-16.0); MCH 35.4 pg (27.0-34.0); MCHC 34.2 gm/dL (32.0-36.5); MCV 103.6 fl (83.0-98.0); MPV 9.1 fl (9.4-12.4); PLATELET COUNT 207 K/uL (150-450); RBC 3.05 M/uL (3.50-5.50); WBC 15.6 K/uL (4.0-11.0)
[2016-12-29 06:09] LABS: ANION GAP 13.5 (10.0-19.0); CALCIUM 7.9 mg/dL (8.5-10.5); CREATININE 1.6 mg/dL (0.6-1.3); POTASSIUM 3.5 mMol/L (3.7-5.1)
[2016-12-29 07:06] LABS: LYMPHOCYTE # 1.1 K/uL (0.8-4.0); LYMPHOCYTE % 7 %; MONOCYTE # 1.4 K/uL (0.0-1.0); SEGMENTED NEUTROPHIL # 10.3 K/uL (1.4-9.0); SEGMENTED NEUTROPHIL % 66 %
[2016-12-29 07:07] LABS: ABSOLUTE NEUTROPHIL CT (ANC) 13.1 K/uL (1.4-9.0); BANDED NEUTROPHIL # 2.8 K/uL (0.0-0.1); BANDED NEUTROPHILS % 18 %
--- NOTE | 2016-12-29 09:17 | NUR ---
PT SCREENED D/T (+) MST. WT ACTUALLY UP FROM OCTOBER ADMISSION AND BMI WNL. APPETITE GOOD PER ADMIT ASSESSMENT. BASED ON CURRENT DATA, NO NUTRITION RELATED DIAGNOSIS IDENTIFIED. WILL ASSIST NEEDED.
--- NOTE | 2016-12-29 11:50 | NUR ---
Met with patient at bedside today. Introduced myself and the role of the care management department. Patient lives at home with his . He is independent with all of his ADL's at home. They have all assistive devises already at home, such as walker, shower benches and handicap accessible bathrooms. His plan is to return home when he is medically stable with no additional needs. Will have CM continue to follow and offer assistance if needed.
--- NOTE | 2016-12-29 14:48 | NUR ---
Significant Event: Patient alert and oriented x3. Up with 1 person stand by. IV to the L) AC. High fall risk--do not leave patient alone in bathroom, he does try to get out of bed by himself. Bed alarm on at all times. Patient continues to have frequent diarrhea-has used toilet in BR all day. Emisis x3 today. PO Vanco changed to IV Flagyl, due to nausea and vomitting. NPO for 4 hours until no emisis and then can be clear liquids if he continues to have no emisis. Potassium chloride given IV today. Normal saline bolus given x1L. Started on lovenox shot. Denies pain. BP running in the 100/50 area. MD aware. Paramiters on beta lyric established. Cooperative with cares.
[2016-12-30 05:39] LABS: HEMATOCRIT 30.2 % (33.0-50.0); HEMOGLOBIN 9.9 g/dL (11.0-16.0); MCH 35.1 pg (27.0-34.0); MCHC 32.8 gm/dL (32.0-36.5); MCV 107.1 fl (83.0-98.0); PLATELET COUNT 212 K/uL (150-450); RBC 2.82 M/uL (3.50-5.50); RDW-CV 15.1 % (11.9-14.6); WBC 9.4 K/uL (4.0-11.0)
--- NOTE | 2016-12-30 05:46 | NUR ---
Significant Event: AAOX3. CLEAR LIQUID DIET. PIV TO LAC WITH IVF INFUSING. REMAINS ON CONTACT PRECAUTIONS. NO EMESIS THDURING SHIFT, ZOFRAN ADMINISTERED AT 0220 FOR COMPLAINTS OF NAUSEA/INDIGESTION. NIACIN, B12, AND MULTIVITAMIN D/C'D PER MD ORDERS. COOPERATIVE WITH CARES. Follow up:
[2016-12-30 06:00] LABS: ALBUMIN 2.4 gm/dL (3.5-5.0); CALCIUM 7.7 mg/dL (8.5-10.5); CREATININE 1.3 mg/dL (0.6-1.3); TOTAL PROTEIN 5.8 g/dL (6.0-8.4)
[2016-12-30 06:01] LABS: TOTAL BILIRUBIN 0.3 mg/dL (0.0-1.5)
[2016-12-30 06:09] LABS: ABSOLUTE NEUTROPHIL CT (ANC) 7.1 K/uL (1.4-9.0); BANDED NEUTROPHIL # 1.4 K/uL (0.0-0.1); BANDED NEUTROPHILS % 15 %; LYMPHOCYTE # 1.2 K/uL (0.8-4.0); LYMPHOCYTE % 13 %; MONOCYTE # 0.8 K/uL (0.0-1.0); SEGMENTED NEUTROPHIL # 5.7 K/uL (1.4-9.0); SEGMENTED NEUTROPHIL % 61 %
--- NOTE | 2016-12-30 14:22 | NUR ---
Significant Event: Pt denies pain. Up with standby assist to br. wrote order for pt ok to be up ad harmony in room. Has only had 1 bm this shift. Pt agitated this afternoon with staff and yelling at nurse. Pt states he wants IV disconnected for IV site to go to the br, I explained to him that we can't do that as it is a risk for infection to IV site, says the other nurses have been doing that. Also yelled at nurse as IV was beeping and said it was 15 min since it was going off and nobody has fixed it. also yelling at staff. Explained to pt/ that I was just in there approx. 5-10 ago to help into the br and he just back into bed when I noticed the IV beeping. Pt does not seem to remember this. Pt apologized for yelling at staff. Follow up:
[2016-12-31 05:39] LABS: HEMATOCRIT 27.9 % (33.0-50.0); HEMOGLOBIN 8.8 g/dL (11.0-16.0); MCH 34.9 pg (27.0-34.0); MCHC 31.5 gm/dL (32.0-36.5); MCV 110.7 fl (83.0-98.0); MPV 10.6 fl (9.4-12.4); RBC 2.52 M/uL (3.50-5.50); RDW-CV 15.2 % (11.9-14.6)
[2016-12-31 05:40] LABS: PLATELET COUNT 77 K/uL (150-450)
[2016-12-31 05:52] LABS: ALBUMIN 2.1 gm/dL (3.5-5.0); ALK PHOS 45 IU/L (33-138); ALT 20 IU/L (12-78); BLOOD UREA NITROGEN 7 mg/dL (6-24); CO2 19 mMol/L (22-32); ESTIMATED GFR (MDRD EQUATION) > 60; TOTAL BILIRUBIN 0.3 mg/dL (0.0-1.5); TOTAL PROTEIN 5.2 g/dL (6.0-8.4)
[2016-12-31 05:53] LABS: ANION GAP 12.5 (10.0-19.0); AST 31 IU/L (10-40); CALCIUM 7.4 mg/dL (8.5-10.5); CHLORIDE 117 mMol/L (96-110); POTASSIUM 4.5 mMol/L (3.7-5.1); SODIUM 144 mMol/L (135-145)
--- NOTE | 2016-12-31 06:05 | NUR ---
Significant Event: AAOX3. PIV TO LAC ACCIDENTLY D/C'D BY PT. PIV TO MEDIAL RIGHT FA STARTED AT 0420. TOLERATED WELL. COOPERATIVE WITH CARES. PT COMPLAINED OF FEELING LIKE HE HAD THRUSH IN HIS MOUTH AT 0530. NO PRN'S ADMINISTERED. Follow up:
[2016-12-31 06:08] LABS: ABSOLUTE NEUTROPHIL CT (ANC) 3.9 K/uL (1.4-9.0); BANDED NEUTROPHIL # 0.8 K/uL (0.0-0.1); BANDED NEUTROPHILS % 15 %; LYMPHOCYTE # 0.9 K/uL (0.8-4.0); LYMPHOCYTE % 17 %; MONOCYTE # 0.2 K/uL (0.0-1.0); SEGMENTED NEUTROPHIL # 3.1 K/uL (1.4-9.0); SEGMENTED NEUTROPHIL % 62 %
--- NOTE | 2016-12-31 14:57 | NUR ---
Significant Event: Patient alert and oriented x3. VSS on Ra. Up independently. Denies pain. 2 reported bowel movements this shift- still liquid stools. Denied nausea/no emisis- Advanced diet to bland diet. MD would like 2L of oral fluids taken daily. IV in R) forearm- IV D5NS with 40KCl running at 75/hr. DC IV Flagyl-went to PO Flagyl. Cooperative with cares.
--- NOTE | 2017-01-01 03:33 | NUR ---
Pt. alert and oriented. VSS. RA. IND. R) IV in forearm with fluids at 75ml/hour. Denies pain. Still reporting loose stools. Candler diet. Encourage 2L of oral liquids intake. Oral antibx. Would like MD to look at thrush and possibly get order for nystatin or wafer. Cooperative with cares.
[2017-01-01 09:12] LABS: HEMATOCRIT 31.3 % (33.0-50.0); HEMOGLOBIN 10.4 g/dL (11.0-16.0); MCH 35.1 pg (27.0-34.0); MCHC 33.2 gm/dL (32.0-36.5); MCV 105.7 fl (83.0-98.0); RBC 2.96 M/uL (3.50-5.50); RDW-CV 14.7 % (11.9-14.6); WBC 4.9 K/uL (4.0-11.0)
[2017-01-01 09:16] LABS: PLATELET COUNT 245 K/uL (150-450)
[2017-01-01 09:28] LABS: ALBUMIN 2.5 gm/dL (3.5-5.0); ALK PHOS 48 IU/L (33-138); ALT 21 IU/L (12-78); ANION GAP 10.1 (10.0-19.0); AST 27 IU/L (10-40); CALCIUM 7.8 mg/dL (8.5-10.5); CHLORIDE 112 mMol/L (96-110); CO2 25 mMol/L (22-32); ESTIMATED GFR (MDRD EQUATION) > 60; POTASSIUM 4.1 mMol/L (3.7-5.1); SODIUM 143 mMol/L (135-145); TOTAL BILIRUBIN 0.3 mg/dL (0.0-1.5); TOTAL PROTEIN 5.9 g/dL (6.0-8.4)
[2017-01-01 09:31] LABS: BLOOD UREA NITROGEN 3 mg/dL (6-24)
[2017-01-01 10:00] LABS: ABSOLUTE NEUTROPHIL CT (ANC) 3.3 K/uL (1.4-9.0); BANDED NEUTROPHIL # 0.4 K/uL (0.0-0.1); BANDED NEUTROPHILS % 8 %; LYMPHOCYTE # 0.8 K/uL (0.8-4.0); LYMPHOCYTE % 17 %; MONOCYTE # 0.5 K/uL (0.0-1.0); SEGMENTED NEUTROPHIL # 2.9 K/uL (1.4-9.0); SEGMENTED NEUTROPHIL % 60 %
--- NOTE | 2017-01-01 14:33 | NUR ---
Significant Event: Patient up ad harmony in room. IV fluids saline locked per orders. Patient has been working on iced tea in room to get his 2 liters of fluids in. Education on c-difficile given to patient from the virtual nurse. Tums 1 tab given to patient at 1421 for upset stomach. Tolerating bland diet well. Possibility of home in a.m. Follow up: Continue to monitor.
--- NOTE | 2017-01-02 05:43 | NUR ---
PAITENT IS ALERT AND ORIENTED HE IS UP AT [facility] IN ROOM. ON ISO FOR C DIFF CONTINUES TO HAVE MULTIPLE LOOSE MUCUS STOOLS. HAD ONE EMISIS IN TOILET STATED STOMACH WAS UPSET BUT FELT BETTER AFTER VOMITING. VSS EWNL ON RA. NO COMPLAINTS OF PAIN OR DISCOMFORT THIS SHIFT
[2017-01-02 05:56] LABS: BASOPHIL % 0.4 %; EOSINOPHIL # 0.1 K/uL (0.0-0.5); EOSINOPHIL % 1.4 %; HEMATOCRIT 28.7 % (33.0-50.0); HEMOGLOBIN 9.9 g/dL (11.0-16.0); IMMATURE GRANULOCYTE # 0.3 K/uL (0.0-0.3); LYMPHOCYTE # 0.6 K/uL (0.8-4.0); LYMPHOCYTE % 12.3 %; MCH 35.2 pg (27.0-34.0); MCHC 34.5 gm/dL (32.0-36.5); MCV 102.1 fl (83.0-98.0); MONOCYTE # 0.6 K/uL (0.0-1.0); MONOCYTE % 12.7 %; MPV 8.9 fl (9.4-12.4); NEUTROPHIL # (ANC) 3.4 K/uL (1.4-9.0); NEUTROPHIL % 68.2 %; NRBC % 0 /100WBC (0-0.00); PLATELET COUNT 212 K/uL (150-450); RBC 2.81 M/uL (3.50-5.50); RDW-CV 14.6 % (11.9-14.6)
[2017-01-02 06:17] LABS: ALBUMIN 2.3 gm/dL (3.5-5.0); ALK PHOS 43 IU/L (33-138); ALT 24 IU/L (12-78); ANION GAP 7.9 (10.0-19.0); AST 33 IU/L (10-40); CALCIUM 7.9 mg/dL (8.5-10.5); CHLORIDE 110 mMol/L (96-110); CO2 25 mMol/L (22-32); ESTIMATED GFR (MDRD EQUATION) > 60; POTASSIUM 3.9 mMol/L (3.7-5.1); SODIUM 139 mMol/L (135-145); TOTAL PROTEIN 5.5 g/dL (6.0-8.4)
[2017-01-02 06:19] LABS: BLOOD UREA NITROGEN 5 mg/dL (6-24); TOTAL BILIRUBIN 0.4 mg/dL (0.0-1.5)
--- NOTE | 2017-01-02 13:15 | NUR ---
A - NUTRITION FOLLOW-UP. C-DIFF POSITIVE. HAD EMESIS YESTERDAY, DID NOT TOLERATE ORAL DIET. HAS THRUSH WHICH IS IMPROVED PER PT. LABS: GLU 103, BUN 5, ALB 2.3, CRP 4.92 MEDS: REVIEWED. DIET: BLAND DIET SINCE 12/31, X2 DAYS. INTAKE ABOUT 67% X9 MEALS, BETWEEN 50-100%. PER RN, ON BLAND DIET DUE TO C-DIFF. PT IS TIRED OF BLAND DIET. DISLIKES YOGURT WHICH IS SCHEDULED DAILY. D - INADEQUATE ORAL INTAKE RELATED TO ALTERED GI FUNCTION EVIDENCED BY PO 67% X9 MEALS AND BLAND DIET X2 DAYS. I - PT AGREED TO TRY ENSURE CLEAR ONCE DAILY; ENSURE ENLIVE ONCE DAILY. M/E - GOAL: ADVANCE DIET TOLERATED AND PT WILL BE ABLE TO TOLERATE >70% OF MEALS AND AT LEAST ONE ORAL SUPPLEMENT PER DAY IN 3-5 DAYS.
[2017-01-02] MEDS ORDERED: FLORASTOR250 MG PO (14:36)
[2017-01-02] MEDS ORDERED: FLAGYL500 MG PO (14:37)
--- NOTE | 2017-01-02 15:45 | NUR ---
D: ORDERS RECEIVED FOR THE PATIENT TO BE DISCHARGE TO HOME TODAY. I: DISMISSAL INSTRUCTIONS WERE PREPARED AND REVIEWED WITH THE PATIENT AND HIS FAMILY AT BEDSIDE. THE FOLLOWING INFORMATION WAS DISCUSSED INCLUDING DANNIE TEACHING SHEETS PROVIDED: CLOSTRIDIUM DIFFICILE (C.DIFF), FLAGYL, FLORASTOR, BLAND DIET AND PREVENTING DVT. REVIEWED FOLLOW UP APPOINTMENT WITH DR. MCCULLOUGH FOR 8 DAYS AND NEW PRESCRIPTIONS THEY WILL NEED TO TAKE TO THE PHARMACY TO BE FILLED. R: THE PATIENT AND HIS FAMILY BOTH VERBALIZED UNDERSTANDING OF THE DISMISSAL EDUCATION AT THE TIME OF TEACHING WITH NO FURTHER QUESTIONS. P: THE ABOVE INFORMATION WAS SHARED WITH THE PRIMARY NURSE AND THE CHARGE NURSE THAT THE PATIENT DISMISSAL EDUCATION WAS COMPLETED. THE PATIENT IS READY FOR DISCHARGE TO THE FRONT DOOR VIA WHEEL CHAIR BY NURSING STAFF. REMOVED PATIENT PIV SITE FROM R)FOREARM NO REDNESS OR DRAINAGE NOTED.
--- NOTE | 2017-01-02 16:36 | NUR ---
Significant Event: Patient up ad harmony in room. Denies pain/nausea. Did have emesis last night, but has had no problems today. Tolerated half of breakfast and about 75% of lunch. Dr. Villafana here and gave ok to dismiss patient. Virtual nurse followed through with dismissal and STORE SHOPPER took patient in a wheelchair down to the front doors for dismissal. was going to transport patient home.
== END 2017-01-02 16:00 | disposition disaster alternative care site (69) | DRG 372 ==
LOC: GMED 19:22 → GMSU 21:43
PROVIDERS: Family Medicine; ADMIT Obstetrics & Gynecology Obstetrics
DX: A04.7 Enterocolitis due to Clostridium difficile (principal); D61.818 Other pancytopenia; N17.9 Acute kidney failure, unspecified; I95.9 Hypotension, unspecified; E86.0 Dehydration; I73.9 Peripheral vascular disease, unspecified; J44.9 Chronic obstructive pulmonary disease, unspecified; E87.6 Hypokalemia; E78.5 Hyperlipidemia, unspecified; R11.0 Nausea; I12.9 Hypertensive chronic kidney disease with stage 1 through stage 4 chronic kidney disease, or unspecified chronic kidney disease; N18.9 Chronic kidney disease, unspecified; Z86.73 Personal history of transient ischemic attack (TIA), and cerebral infarction without residual deficits; Z79.82 Long term (current) use of aspirin; Z87.891 Personal history of nicotine dependence; Z98.49 Cataract extraction status, unspecified eye; Z86.010 Personal history of colon polyps; Z98.62 Peripheral vascular angioplasty status; Z90.89 Acquired absence of other organs; Z90.49 Acquired absence of other specified parts of digestive tract
CPT/HCPCS: J1650; J2405; J3370; J3480; J7030; J7040; J7042; J7050

== ENCOUNTER → 2017-02-08 | Outpatient (CLI) | payer MEDICARE ==
[~2017-02-08] MED LIST changes: +FLAGYL500 MG PO; +FLORASTOR250 MG PO
== END | disposition disaster alternative care site (69) ==
LOC: LGSMG 11:23
DX: N28.9 Disorder of kidney and ureter, unspecified (principal)